=== PATIENT | male | born 1955 | race Caucasian/White ===

== ENCOUNTER → 2018-05-07 | Outpatient (CLI) | payer OTHER | LOC: M.CT 10:25 | DX: I65.23 Occlusion and stenosis of bilateral carotid arteries (principal); G81.91 Hemiplegia, unspecified affecting right dominant side ==

== ENCOUNTER 2021-02-09 09:41 | Inpatient (IN) | payer OTHER ==
[~2021-02-09] VITALS: Ht 172.7 cm; Wt 83.9 kg
[2021-02-09 09:59] VITALS: BP 165/104
[2021-02-09 10:59] LABS: CALCIUM 9.1 mg/dL (8.5-10.1); CREATININE 1.4 mg/dL (0.6-1.3); POTASSIUM 4.1 mmol/L (3.5-5.1)
[2021-02-09 11:03] LABS: ABSOLUTE EOSINOPHILS 0.1 thou/uL (0.0-0.7); ABSOLUTE MONOCYTES 0.5 thou/uL (0.0-1.2); ALBUMIN 2.9 g/dL (3.4-5.0); BASOPHILS 0.7 %; EOSINOPHILS 0.8 %; HEMATOCRIT 33.8 % (42.0-52.0); HEMOGLOBIN 12.1 gm/dL (14.0-18.0); LYMPHOCYTES 14.8 %; MCHC 35.7 g/dL (28.0-37.0); MPV 8.5 fl. (7.2-11.1); NUCLEATED RBCS 0 /100WBC; PLATELET COUNT* 165 thou/uL (150-400); POLYS 76.7 %; RBC 3.56 mil/uL (4.50-6.00); TOTAL BILIRUBIN 1.6 mg/dL (<0.1-1.0); TOTAL PROTEIN 6.6 g/dL (6.4-8.2); WBC 6.6 thou/uL (4.0-11.0)
[2021-02-09 11:46] LABS: URINE BLOOD 3+ (Negative); URINE CLARITY CLOUDY; URINE COLOR DARK YELLOW; URINE GLUCOSE-RANDOM NEGATIVE (Negative); URINE KETONES NEGATIVE (Negative); URINE LEUKOCYTES 3+ (Negative); URINE NITRITE POSITIVE (Negative); URINE PROTEIN 2+ (Negative); URINE SPECIFIC GRAVITY 1.025 (1.005-1.030)
[2021-02-09 11:48] LABS: ICTOTEST (BILI CONFIRMATORY) Negative (Negative); URINE BILIRUBIN 1+ (Negative)
[2021-02-09 12:01] LABS: BACTERIA >30 Many /HPF (None Seen); CASTS None Seen /LPF (None Seen); CRYSTALS None Seen /LPF (None Seen); MUCUS None Seen strn/LPF (None Seen); URINE RBC >20 Many /HPF (0-2); URINE WBC 6-15 Few /HPF (0-5)
[2021-02-09 12:08] LABS: SQUAMOUS 0-3 Few /LPF (0-3)
--- NOTE | 2021-02-09 13:23 | EKG ---
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1955 Requested By: Antione Aviles Order Number: [id number] MD: Jose Luis Carson Measurements Intervals [place] Rate: 102 P: 57 KS: 173 QRS: -9 QRSD: 74 T: 58 QT: 326 QTc: 425 Interpretive Statements Sinus tachycardia Atrial premature complex Inferior infarct, old Anterior infarct, old Baseline wander in lead(s) V5 No previous ECG available for comparison Electronically Signed On 02-09-2021 13:23:16 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
[2021-02-09 16:00] VITALS: BP 129/85
[2021-02-09 19:03] VITALS: BP 129/85
[2021-02-09 20:00] VITALS: BP 161/99
[2021-02-10 00:30] VITALS: BP 140/88
[2021-02-10 04:21] VITALS: BP 152/87
[2021-02-10 05:05] LABS: CALCIUM 8.6 mg/dL (8.5-10.1); CREATININE 1.2 mg/dL (0.6-1.3); POTASSIUM 3.9 mmol/L (3.5-5.1)
[2021-02-10 08:00] VITALS: BP 128/73
--- NOTE | 2021-02-10 09:12 | NUR ---
CM ASSESSMENT: PT A&O, INDEPENDENT WITH ADL'S, ACTIVE, AND WORKS FULL-TIME OUTSIDE THE HOME. PT INFORMS THAT HE PLANS TO RETIRE AT THE END OF THE MONTH. PT USES 0 DME. PT HAS 0 HX OF HH OR SNF. PT INFORMS THAT HE PLANS TO RETURN TO WORK AT D/C, AND DOES NOT ANTICIPATE ANY NEEDS. CM WILL REMAIN AVAILABLE TO ASSIST AND FOLLOW NEEDED.
[2021-02-10 12:52] LABS: ABSOLUTE MONOCYTES 0.3 thou/uL (0.0-1.2); BASOPHILS 0.7 %; EOSINOPHILS 0.9 %; HEMATOCRIT 30.1 % (42.0-52.0); HEMOGLOBIN 10.8 gm/dL (14.0-18.0); LYMPHOCYTES 17.9 %; MCH 34.3 pg (26.0-34.0); MCHC 35.9 g/dL (28.0-37.0); MCV 95.6 fL (80.0-100.0); MONOCYTES 6.1 %; MPV 8.2 fl. (7.2-11.1); NUCLEATED RBCS 0 /100WBC; PLATELET COUNT* 140 thou/uL (150-400); POLYS 74.4 %; RBC 3.15 mil/uL (4.50-6.00); WBC 5.4 thou/uL (4.0-11.0)
[2021-02-10 13:00] LABS: APTT 27.2 Seconds (25.0-31.3); INR 1.1; PROTIME 10.9 Seconds (9.20-11.50)
[2021-02-10 13:02] VITALS: BP 111/65
[2021-02-10 13:11] LABS: ANION GAP 8 mmol/L (7-16); BUN 23 mg/dL (7-18); CALCIUM 8.9 mg/dL (8.5-10.1); CHLORIDE 94 mmol/L (98-107); CHOLESTEROL 167 mg/dL (<200); CO2 25 mmol/L (21-32); CREATININE 1.3 mg/dL (0.6-1.3); GLUCOSE 98 mg/dL (70-99); HDL CHOLESTEROL 22 mg/dL (>40); LDL CHOLESTEROL 109 mg/dL (<100); MAGNESIUM 1.9 mg/dL (1.8-2.4); PHOSPHORUS* 3.7 mg/dL (2.5-4.9); POTASSIUM 4.2 mmol/L (3.5-5.1); SODIUM 127 mmol/L (136-145); TC:HDL 7.6 Ratio (Not establshd); TRIGLYCERIDE 181 mg/dL (<150); VLDL 36 mg/dL (<40)
[2021-02-10 13:12] LABS: SERUM ASSESSMENT Clear
--- NOTE | 2021-02-10 13:16 | 2DMMODE ---
[place] [address] 2 D/M-MODE ECHOCARDIOGRAM Name: ROMY ALTAMIRANO Room: [address] IN .R.#: [id number] Admission: 02/09/21 Attend Phys: Anastasiia Hodges, Discharge: Date of : 51 Date of Service: 02/10/21 1315 Report #: [id number] THIS REPORT FOR: cc: Chiqui Rae Angela Jo RNP Liston, Michael J. MD [facility] ~ APPROVED REPORT Study performed: 02/10/2021 11:56:31 EXAM: Comprehensive 2D, Doppler, and color-flow Echocardiogram Patient Location: In-Patient Room #: [facility] Status: routine BSA: 1.98 HR: 102 bpm BP: 128/73 mmHg Rhythm: NSR Other Information Study Quality: Good Indications CVA/TIA Echo Enhancing Agent Indication: Rule out Shunt Agent(s) / Amount(s) Used: Agitated Saline 10 cc 2D Dimensions IVSd: 11.48 (7-11mm) LVOT Diam: 19.93 (18-24mm) LVDd: 46.30 mm PWd: 11.24 (7-11mm) Ascending Ao: 35.43 (22-36mm) LVDs: 26.84 (25-40mm) Aortic Root: 33.90 mm Volumes Left Atrial Volume (Systole) LA ESV Index: 23.10 mL/m2 Aortic Valve AoV Peak Sekou.: 1.54 m/s AO Peak Gr.: 9.49 mmHg LVOT Max P.64 mmHg AO Mean Gr.: 5.60 mmHg LVOT Mean P.77 [place] [address] 2 D/M-MODE ECHOCARDIOGRAM Name: ROMY ALTAMIRANO Room: [address] IN M.R.#: [id number] Admission: 02/09/21 Attend Phys: Anastasiia Hodges, Discharge: Date of : 51 Date of Service: 02/10/21 1315 Report #: [id number] LVOT Max V: 0.95 m/s AO V2 VTI: 22.78 cm LVOT Mean V: 0.61 m/s TERRY (VTI): 2.04 cm2 LVOT V1 VTI: 14.88 cm Mitral Valve E/A Ratio: 0.61 MV Decel. Time: 223.77 ms MV E Max Sekou.: 0.67 m/s MV PHT: 64.89 ms MVA (PHT): 3.39 cm2 TDI E/Lateral E': 9.57 E/Medial E': 4.79 Medial E' Sekou.: 0.14 m/s Lateral E' Sekou.: 0.07 m/s Pulmonary Valve PV Peak Sekou.: 1.07 m/s PV Peak Gr.: 4.60 mmHg Tricuspid Valve RAP Estimate: 5.00 mmHg TR Peak Gr.: 26.48 mmHg RVSP: 31.00 mmHg PA Pressure: 31.00 mmHg Left Ventricle The left ventricle is normal size. There is normal LV segmental wall motion. There is normal left ventricular wall thickness. Left ventricular systolic function is normal. LVEF is 55-60%. Grade I - abnormal relaxation pattern. Right Ventricle The right ventricle is normal size. The right ventricular systolic function is normal. Atria The left atrium size is normal. The interatrial septum is intact with no evidence for an atrial septal defect. The right atrium size is normal. Aortic Valve Mild aortic valve sclerosis. No aortic regurgitation is present. There is no aortic valvular stenosis. Mitral Valve The mitral valve is normal in structure. Trace mitral regurgitation. No evidence of mitral [place] [address] 2 D/M-MODE ECHOCARDIOGRAM Name: ROMY ALTAMIRANO Room: [address] IN .R.#: [id number] Admission: 02/09/21 Attend Phys: Anastasiia Hodges, Discharge: Date of : 51 Date of Service: 02/10/21 1315 Report #: [id number] Tricuspid Valve The tricuspid valve is normal in structure. Trace tricuspid regurgitation. The RVSP is 30-35 mmHg. Pulmonic Valve The pulmonary valve is normal in structure. Trace pulmonic regurgitation. Great Vessels The aortic root is normal in size. IVC is normal in size and collapses >50% with inspiration. Pericardium There is no pericardial effusion. <Conclusion> The left ventricle is normal size. There is normal left ventricular wall thickness. Left ventricular systolic function is normal. LVEF is 55-60%. Grade I - abnormal relaxation pattern. There is normal LV segmental wall motion. Mild aortic valve sclerosis. There is no aortic valvular stenosis. Trace mitral regurgitation. Trace tricuspid regurgitation. The RVSP is 30-35 mmHg. Trace pulmonic regurgitation. IVC is normal in size and collapses >50% with inspiration. The interatrial septum is intact with no evidence for an atrial septal defect. <ELECTRONICALLY SIGNED> By: Celestino Sapp MD, FACC 02/10/21 1315 1315 131 Celestino Sapp MD, FACC /INF
[2021-02-10 19:56] VITALS: BP 162/88
[2021-02-11] VITALS: BP 140/79
[2021-02-11 02:06] LABS: GLYCOHEMOGLOBIN (HGB A1C) 4.8 % (4.8-5.6)
[2021-02-11 04:00] VITALS: BP 143/79
[2021-02-11 08:00] VITALS: BP 164/90
--- NOTE | 2021-02-11 12:32 | NUR ---
NNeurology says ok to discharge. Make sure pt knows to take aspirin daily.
--- NOTE | 2021-02-11 12:44 | CON ---
[address] [address] CONSULTATION Name: ROMY ALTAMIRANO Room: [address] IN M.R.#: [id number] Admission: 02/09/21 Attend Phys: Anastasiia Hodges MD Discharge: Date of : 51 Report #: [id number] THIS REPORT FOR: cc: Chiqui Rae Angela Jo RNP Khan, Abid R. MD ~ DATE OF CONSULTATION: 02/09/2021 NEPHROLOGY CONSULT REASON FOR CONSULTATION: Hyponatremia. HISTORY OF PRESENT ILLNESS: A 65-year-old gentleman with no significant past medical history, although he reports a TIA about 2 years ago, comes in with some slurred speech and concern for possible TIA. He had a CT head, which was unrevealing and a chest x-ray, which was unrevealing except for some emphysematous changes. He denies any history of hyponatremia. Other than Aleve, he takes no medications or diuretics at home. Has not had any significant weight loss. No new medications or tdlk-omx-wlldqer medications, otherwise. Feels well, has no complaints. He eats regularly. Denies any excess fluid intake. REVIEW OF SYSTEMS: Constitutional, psych, heme, eyes, ENT, respiratory, cardiac, GI, , endocrine, all negative except as documented above. PAST MEDICAL HISTORY: History of TIA 2 years ago. MEDICATIONS: P.r.n. Aleve. SOCIAL HISTORY: Quit smoking over 35 years ago. Positive alcohol intake, but he tells me he has reduced his alcohol intake significantly. FAMILY HISTORY: Nonpertinent in 65-year-old gentleman. PHYSICAL EXAMINATION: VITAL SIGNS: Blood pressure is 157/91, pulse 106, respirations 20, temperature 36.2. GENERAL: No acute distress. EYES: Open. EARS: Externally normal. NECK: Supple. CARDIOVASCULAR: Regular rate. LUNGS: No crackles. GASTROINTESTINAL: Negative. MUSCULOSKELETAL: Nontender. PSYCHIATRIC: Awake, [place] [address] CONSULTATION Name: EVELIAROMY Room: [address] IN .R.#: [id number] Admission: 02/09/21 Attend Phys: Anastasiia Hodges MD Discharge: Date of : 51 Report #: [id number] NEUROLOGIC: [facility]. LABORATORY DATA: White cell count 6.6, hemoglobin 12.1, platelets 165. Sodium 126, potassium 4.1, chloride 91, bicarbonate 28, BUN 27, creatinine 1.4, glucose 120, calcium 9.1. Albumin 2.9. AST 98, ALT 51. ASSESSMENT AND PLAN: 1. Hyponatremia. In the setting of back pain, he was taking Aleve for this recently. CT head was unrevealing. Chest x-ray was okay except for some emphysematous changes. Pain may be causing high ADH state and may have a component of volume depletion. His neurologic symptoms are likely not related to hyponatremia as this is rather mild. Of note, he does have AST of 98 and previous history of heavy alcohol use. 2. Acute kidney injury, mildly elevated creatinine of 1.4, baseline is unknown. He was taking Aleve recently for back pain. 3. Hypoalbuminemia with albumin of 2.9. 4. History of transient ischemic attack. PLAN: We will discontinue fluid bolus. UA is pending. We will check a CK as well. Thank you for requesting my opinion in the care and management of this patient. <ELECTRONICALLY SIGNED> By: Owen Brown MD 02/11/21 1244 1105 [id number] Brown MD /nt
[2021-02-11] MEDS ORDERED: LIPITOR 40 MG T40 M1 PO (13:28)
[2021-02-11] MEDS ORDERED: ADULT LOW DOSE81 MG PO (13:29)
[2021-02-11] MEDS ORDERED: PLAVIX 75 MG TA75 MG PO (13:29)
[2021-02-11 13:49] VITALS: BP 164/90
[2021-02-11 14:07] VITALS: BP 167/98
--- NOTE | 2021-02-15 18:02 | CON ---
[address] [address] CONSULTATION Name: ROMY ALTAMIRANO Room: [address] IN M.R.#: [id number] Admission: 02/09/21 Attend Phys: Anastasiia Hodges MD Discharge: 02/11/21 Date of : 51 Report #: [id number] THIS REPORT FOR: cc: Chiqui Rae Angela Jo RNP Khosla, Parveen K. MD ~ DATE OF CONSULTATION: 02/10/2021 HISTORY OF PRESENT ILLNESS: A 65-year-old male patient who was seen by me for an episode of speech difficulty. His coworkers noticed it and it did not last too long and then he became better from it. He had some history of TIA in the past, but history is pretty confusing and I am not sure how confirm that diagnosis of TIA was in this patient. He did not have any significant testing at that time. REVIEW OF SYSTEMS: Positive for the fact that he is admitted with hyponatremia. He is seen by Nephrology. They do not think hyponatremia is the cause of the patient's problem. He was also seen by [facility]. Those notes were reviewed. He did have a CT scan of the head in the Emergency Room, which was mostly unremarkable. A 14-point review of system is otherwise mostly noncontributory in this patient. PAST MEDICAL HISTORY: Positive for hyponatremia. FAMILY HISTORY: Unremarkable. 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 He does not drink much alcohol. PHYSICAL EXAMINATION: NEUROLOGIC: Indicates he is alert, responsive, able to follow simple and complex command. He believes his memory and fund of knowledge is at his baseline. Cranial nerve examination and neuromuscular examination was mostly unremarkable. Position sense was intact. He was able to walk. There is no meningeal sign. I could not look at the patient's fundus. There is no carotid bruit. There is no thyroid mass. CARDIAC: Unremarkable. No respiratory difficulty was noticed. No change in cardiac or respiratory status was noticed. VITAL SIGNS: Blood pressure is 111/65, respiration is 15, pulse is 74, temperature is 98.6. LABORATORY DATA: White count is 5.4. He did have a CT scan of the head, which does not demonstrate any pathology, which can explain the patient's symptoms. He has no edema. He is a well-built individual. He does not have [place] [address] CONSULTATION Name: ROMY ALTAMIRANO Room: [address]#: [id number] Admission: 02/09/21 Attend Phys: Anastasiia Hodges MD Discharge: 02/11/21 Date of : 51 Report #: [id number] IMPRESSION: Transient ischemic attack-like symptoms. We will work up by doing an MRI and MRA of the brain as the first test. His carotid Doppler is already ordered. His echocardiogram is already ordered. We will see what this workup shows. He already received aspirin 1 dose and further management will depend upon the outcome of these testing. Thank you very much for this referral and if you have any questions, please feel free to contact me. <ELECTRONICALLY SIGNED> By: Baldo Elliott MD 02/15/21 1802 1256 [id number] Elliott MD /nt
== END 2021-02-11 15:50 | disposition home or self-care (01) | DRG 65 ==
LOC: M.ERS 09:41 → M.2W 12:25 → M.TBA-ER 12:25 → M.2W 19:21
PROVIDERS: Internal Medicine; Internal Medicine Nephrology; Physician Assistant; ADMIT Internal Medicine; ATTEND Internal Medicine
DX: I63.9 Cerebral infarction, unspecified (principal); E87.1 Hypo-osmolality and hyponatremia; N17.9 Acute kidney failure, unspecified; Z20.822 Contact with and (suspected) exposure to COVID-19; R47.1 Dysarthria and anarthria; E88.09 Other disorders of plasma-protein metabolism, not elsewhere classified; Z86.73 Personal history of transient ischemic attack (TIA), and cerebral infarction without residual deficits; Z87.891 Personal history of nicotine dependence